=== PATIENT | male | born 1990 | race American Indian/Alaskan Native ===

== ENCOUNTER 2019-04-07 19:18 | Emergency (ER) | payer OTHER ==
[2019-04-07 19:29] VITALS: BP 140/95
--- NOTE | 2019-04-07 19:31 | Event Note ---
ED Screening Note Date of service: 04/07/19 Time: 19:30 ED Screening Note: This is a 29 y.o. M. that presents to the ER with tinnitus bilateral ear with intermittent pain for 1 year and worsening. This initial assessment/diagnostic orders/clinical plan/treatment(s) is/are subject to change based on patients health status, clinical progression and re- assessment by fellow clinical providers in the ED. Further treatment and workup at subsequent clinical providers discretion. Patient/guardian urged not to elope from the ED as their condition may be serious if not clinically assessed and managed. Initial orders include:
--- NOTE | 2019-04-07 21:47 | Emergency Department Report ---
ED ENT HPI - General Chief complaint: Earache Stated complaint: EAR PAIN Time Seen by Provider: 04/07/19 19:30 Source: patient Mode of arrival: Ambulatory Limitations: No Limitations - History of Present Illness Initial comments: Patient is a 29-year-old male who presents to emergency room with complaints of intermittent, bilateral tinnitus for the last 4 years. He is not seen anyone for this. He has not had his hearing tested. Denies any pain, fever, drainage, difficulty hearing. Denies any past medical history allergies medications. - Related Data Allergies Allergy/AdvReac Type Severity Reaction Status Date / Time No Known Allergies Allergy Unverified 04/07/19 19:34 ED Dental HPI - General Chief complaint: Earache Stated complaint: EAR PAIN Time Seen by Provider: 04/07/19 19:30 Source: patient Mode of arrival: Ambulatory Limitations: No Limitations - Related Data Allergies Allergy/AdvReac Type Severity Reaction Status Date / Time No Known Allergies Allergy Unverified 04/07/19 19:34 ED Review of Systems ROS: Stated complaint: EAR PAIN Other details as noted in HPI Comment: All other systems reviewed and negative ED Past Medical Hx - Past Medical History Previous Medical History?: No - Surgical History Past Surgical History?: No - Social History Smoking Status: Current Every Day Smoker Substance Use Type: Marijuana ED Physical Exam - General Limitations: No Limitations General appearance: alert, in no apparent distress - Head Head exam: Present: atraumatic, normocephalic - Eye Eye exam: Present: normal appearance, PERRL, EOMI - ENT ENT exam: Present: normal orophraynx, mucous membranes moist, TM's normal bilaterally, normal external ear exam, other (no TTP of the mastoid process bilaterally, no edema of the mastoid process bilaterally) - Neck Neck exam: Present: full ROM. Absent: meningismus, lymphadenopathy, thyromegaly - Respiratory Respiratory exam: Present: normal lung sounds bilaterally. Absent: respiratory distress, wheezes, rales, rhonchi, stridor, chest wall tenderness, accessory muscle use, decreased breath sounds, prolonged expiratory - Cardiovascular Cardiovascular Exam: Present: regular rate, normal rhythm, normal heart sounds. Absent: systolic murmur, diastolic murmur, rubs, gallop - Neurological Exam Neurological exam: Present: alert, oriented X3 - Psychiatric Psychiatric exam: Present: normal affect, normal mood - Skin Skin exam: Present: warm, dry, intact ED Course Vital Signs 04/07/19 19:28 Temperature 98.7 F Pulse Rate 67 Respiratory 20 Rate Blood Pressure 140/95 O2 Sat by Pulse 97 Oximetry ED Medical Decision Making - Medical Decision Making Patient is a 29-year-old male who presents to emergency room with complaints of intermittent, bilateral tinnitus for the last 4 years. He is not seen anyone for this. He has not had his hearing tested. Denies any pain, fever, drainage, difficulty hearing. Denies any past medical history allergies medications. VSS. no abnormality visualized on ENT examination. adivsed pt to please follow up with an ear nose and throat doctor in the next 2-3 days for further evaluation and management. return to the emergency room for any new or worsening symptoms. Critical care attestation.: If time is entered above; I have spent that time in minutes in the direct care of this critically ill patient, excluding procedure time. ED Disposition Clinical Impression: Tinnitus Qualifiers: Laterality: bilateral Qualified Code(s): H93.13 - Tinnitus, bilateral Disposition: TO HOME OR SELFCARE Is pt being admited?: No Does the pt Need Aspirin: No Condition: Stable Additional Instructions: Please follow up with an ear nose and throat doctor in the next 2-3 days. return to the emergency room for any new or worsening symptoms. Referrals: SOTERO CARNES MD [Staff Physician] - 2-3 Days POOL WELCH MD [Staff Physician] - 2-3 Days [facility] [Outside] - 2-3 Days Time of Disposition: 21:46 Print Language: [place]
== END 2019-04-07 21:51 | disposition home or self-care (01) ==
LOC: ED 19:18
DX: H93.13 Tinnitus, bilateral (principal); F17.200 Nicotine dependence, unspecified, uncomplicated; F12.10 Cannabis abuse, uncomplicated
CPT/HCPCS: 99282